=== PATIENT | female | born 1950 | race Two or more races ===

== ENCOUNTER → 2016-12-01 | Outpatient (CLI) | payer MEDICARE | END | disposition home or self-care (01) | LOC: CFH 12:19 | PROVIDERS: ATTEND Nurse Practitioner Family | DX: Z13.820 Encounter for screening for osteoporosis (principal); N95.8 Other specified menopausal and perimenopausal disorders; N63 Unspecified lump in breast; N64.4 Mastodynia | CPT/HCPCS: 76641; 77080; G0204 ==

== ENCOUNTER 2017-01-03 08:41 | Day surgery (SDC) | payer MEDICARE, OTHER ==
[2017-01-02 10:40] VITALS: BP 120/83
[2017-01-02 11:35] LABS: ASPARTATE AMINO TRANSFERASE 15 U/L (15-37); BLOOD UREA NITROGEN 14 mg/dL (7-18)
[~2017-01-03] VITALS: Ht 157.5 cm; Wt 81.7 kg
[~2017-01-03 08:41] MED LIST changes: -ALPR0.25 PO; -LIDOCAINE 1%, 10ML ONE; -SODIUM BICARBONATE 4.2%, 5ML ONE
[2017-01-03] MEDS ORDERED: ALPR0.25 PO (08:50)
[2017-01-03] MEDS ORDERED: LIDOCAINE 1%, 2ML ONE (08:52)
[2017-01-03] MEDS ORDERED: LACTATED RINGERS 1,000 ML IV SCH (09:08)
[2017-01-03] MEDS ORDERED: LIDOCAINE 1%, 2ML SQ PRN (09:30)
[2017-01-03] MEDS ORDERED: BUPIVACAINE/PF 0.25% ONE (10:29)
[2017-01-03] MEDS ORDERED: FENTANYL PF 250 MCG/5ML ONE ×2 (11:20)
[2017-01-03] MEDS ORDERED: LABETALOL 5MG/ML, 20ML IV PRN (12:00)
[2017-01-03] MEDS ORDERED: FENTANYL PF 100 MCG/2ML IV PRN (12:00)
[2017-01-03] MEDS ORDERED: MEPERIDINE/PF 25MG/0.5ML IVPush PRN (12:00)
[2017-01-03] MEDS ORDERED: EPHEDRINE 50 MG/ML, 1ML IVPush PRN (12:00)
[2017-01-03] MEDS ORDERED: hydrALAzine 20 MG/ML, 1ML IV PRN (12:00)
[2017-01-03] MEDS ORDERED: ONDANSETRON 2MG/ML, 2ML IVPush PRN (12:00)
[2017-01-03] MEDS ORDERED: METOPROLOL 1 MG/ML, 5ML IV PRN (12:00)
[2017-01-03] MEDS ORDERED: ACETAMINOPHEN 325 MG TABLET PO PRN (12:00)
[2017-01-03] MEDS ORDERED: ALBUTEROL SULFATE 2.5 MG/3 ML NPPB PRN (12:00)
[2017-01-03] MEDS ORDERED: OXYcodone 5 MG/5 ML ORAL.SOL UDC PO PRN (12:00)
[2017-01-03] MEDS ORDERED: HYDROmorphone 1 MG/ML, 1ML IV PRN (12:00)
[2017-01-03] MEDS ORDERED: ACETAMINOPHEN 650 MG/20.3 ML UDC ONE (12:30)
[2017-01-03] MEDS ORDERED: OXYcodone 5 MG/5 ML ORAL.SOL UDC ONE (12:30)
[2017-01-03] MEDS ORDERED: NEOSTIGMINE 1 MG/ML, 10ML ONE (16:56)
[2017-01-03] MEDS ORDERED: ONDANSETRON 2MG/ML, 2ML ONE (16:56)
[2017-01-03] MEDS ORDERED: CEFAZOLIN 1,000 MG ONE (16:56)
[2017-01-03] MEDS ORDERED: ROCURONIUM 10 MG/ML ONE (16:56)
[2017-01-03] MEDS ORDERED: GLYCOPYRROLATE 0.2MG/1ML ONE (16:56)
[2017-01-03] MEDS ORDERED: PROPOFOL 10 MG/ML, 20ML ONE (16:56)
[2017-01-03] MEDS ORDERED: DEXAMETHASONE 4 MG/ML, 1ML ONE (16:56)
== END 2017-01-03 14:10 ==
LOC: OUT 08:41 → EDSTATUS 10:15 → OUT 14:10
PROVIDERS: ATTEND Surgery
DX: C50.912 Malignant neoplasm of unspecified site of left female breast (principal); I89.8 Other specified noninfective disorders of lymphatic vessels and lymph nodes; E78.00 Pure hypercholesterolemia, unspecified; I10 Essential (primary) hypertension; E03.9 Hypothyroidism, unspecified; Z98.890 Other specified postprocedural states; Z72.89 Other problems related to lifestyle
CPT/HCPCS: 19301; 36415; 38525; 76098; 80053; 88305; 88307; 93005; J0690; J1100; J2405; J2704; J2710; J3010; J3490; J7120

== ENCOUNTER → 2017-01-03 | Outpatient (CLI) | payer MEDICARE, OTHER ==
[~2017-01-03] MED LIST: ALPR0.25 PO; BENA1TAB10 PO; CHOL20002 PO; LEVO75TA5 PO; LIDOCAINE 1%, 10ML ONE; SODIUM BICARBONATE 4.2%, 5ML ONE
== END | disposition home or self-care (01) ==
LOC: CFH 07:03
PROVIDERS: ATTEND Surgery
DX: C50.212 Malignant neoplasm of upper-inner quadrant of left female breast (principal)
CPT/HCPCS: 19285; 38792; A9541; G0206; J3490

== ENCOUNTER → 2017-12-14 | Outpatient (CLI) | payer MEDICARE, OTHER ==
[~2017-12-14] MED LIST changes: +ALPR0.25 PO
== END | disposition home or self-care (01) ==
LOC: CFH 14:39
PROVIDERS: ATTEND Surgery
DX: N64.4 Mastodynia (principal); N64.89 Other specified disorders of breast; Z85.3 Personal history of malignant neoplasm of breast
CPT/HCPCS: 77066

== ENCOUNTER → 2020-02-20 | Outpatient (CLI) | payer MEDICARE, OTHER ==
[~2020-02-20] MED LIST changes: -CHOL20002 PO; +CHOL200052 PO
== END | disposition home or self-care (01) ==
LOC: CFH 13:08
PROVIDERS: ATTEND Internal Medicine Hematology & Oncology
DX: Z12.31 Encounter for screening mammogram for malignant neoplasm of breast (principal)
CPT/HCPCS: 77063; 77067